=== PATIENT | female | born 1985 | race African-American/Black ===

== ENCOUNTER 2024-02-18 15:43 | Emergency (ER) | payer OTHER, BC, SELFPAY ==
[2024-02-18 16:01] VITALS: BP 123/83; PULSE 88; RESP 16; TEMP 36.7; O2SAT 100
--- NOTE | 2024-02-18 16:35 | ED.URI ---
HPI - URI/Sore Throat General Chief Complaint: Upper Respiratory Infection Stated Complaint: cough,chills,WEBSTER,congestion Time Seen by Provider: 02/18/24 16:35 Source: patient, RN notes reviewed and old records reviewed Mode of arrival: ambulatory Limitations: no limitations History of Present Illness HPI Narrative: 38-year-old female presents to the [facility] with complaints of cough, chills, headache and congestion that started Thursday, a 5 days Patient reports ?I have tried everything. Onset (ago): day(s) (5) Related Data Allergies Allergy/AdvReac Type Severity Reaction Status Date / Time No Known Allergies Allergy Verified 02/18/24 16:09 Review of Systems Review of Systems: All systems reviewed & are unremarkable except as noted in HPI and below Constitutional: Constitutional: Reports as per HPI, Reports chills and Reports headache(s) ENT: Reports system reviewed and no additional complaints, except as documented Cardiovascular: Cardiovascular: Reports no additional cardiovascular complaints, Denies chest pain and Denies dyspnea Respiratory: Respiratory: Reports as per HPI, Denies chest congestion, Reports cough and Denies dyspnea Musculoskeletal: Musculoskeletal: Reports no additional musculoskeletal complaints Integumentary/Breasts: Skin/Breast: Reports system reviewed and no additional complaints, except as docu PMFSH Comments At the time of my signature, I reviewed and agree with the nursing past medical, surgical, social, and family history. There is no relevant family history pertinent to the patient complaint. Exam Const: General: cooperative, healthy appearing, comfortable, no acute distress, well developed, alert and well nourished Nutritional Appearance: well nourished Orientation/consciousness: patient oriented x3 Limitations: no limitations HENMT: Head: normal to inspection Ears: hearing grossly normal bilaterally, external ears normal, TM's normal bilaterally, EAC's normal, mastoids normal and no periauricular adenopathy Face/Nose/Sinus: normal facial exam and face symmetric Face and sinus: normal facial exam and face symmetric Mouth: Yes Normal oral and palatal mucosa present, Yes lip normal and Yes tongue normal Throat: posterior oropharynx normal, uvula midline, postnasal drainage and no uvular edema Eyes: General: appearance normal, both eyes and all related structures Neck: Neck: normal visual inspection, full ROM, no lymphadenopathy and no meningeal signs Chest: Chest palpation & inspection: normal inspection of the chest Resp: Effort & Inspection: normal respiratory effort and able to speak in complete sentences Auscultation: clear to auscultation bilaterally, no crackles, no rales, no rhonchi and no wheezes Cardio: Rate: regular rate Skin: General skin exam: normal color and no rashes or lesions noted Neuro: General: patient oriented x3, gait normal, moves all extremities and no meningeal signs Cognition (Neuro): normal cognition Speech: normal speech Gait exam (Neuro): Normal gait present Extrem: General: normal to inspection, full ROM, capillary refill normal and normal gait Psych: Appearance: grossly normal and well kempt Mental Status: mental status grossly normal Speech and movement: Normal speech and movement present and Clear speech present Affect: normal affect Attitude: cooperative Course Course Level of Care: Express Care Visit Vital Signs Vital signs: Vital Signs Temperature 98.0 F 02/18/24 16:01 Pulse Rate 88 02/18/24 16:01 Respiratory Rate 16 02/18/24 16:01 Blood Pressure 123/83 02/18/24 16:01 Pulse Oximetry 100 02/18/24 16:01 Oxygen Delivery Room Air 02/18/24 16:01 Temperature 98.0 F 02/18/24 16:01 Pulse Rate 88 02/18/24 16:01 Respiratory Rate 16 02/18/24 16:01 Blood Pressure 123/83 02/18/24 16:01 Pulse Oximetry 100 02/18/24 16:01 Oxygen Delivery Room Air 02/18/24 16:01 Reviewed MDM - URI/Sore Throat MDM Narrative Medical decision making narrative: Patient sitting comfortably in exam room. Nontoxic, vitals stable. Patient with URI symptoms for 5 days. No acute findings noted on exam Patient appropriate for outpatient treatment and follow-up Discharge instructions reviewed with patient, as well as provided in writing per nursing staff. The instructions also include specific and strict return/GO TO THE ER as well as f/u information. All questions have been answered, and the patient deny any further questions with discharge and discharge plan. Some parts of this dictation were generated by voice recognition software and may contain typographical and/or grammatical inaccuracies. Differential Diagnosis Differential diagnosis: Likely upper respiratory infection, otitis media, sinusitis, viral infection, bronchitis, influenza and pharyngitis Critical Care Time Critical Care Time Critical Care Time: No Discharge Plan Discharge Clinical Impression: Upper respiratory infection Qualifiers: URI type: unspecified viral URI Qualified Code(s): J06.9 - Acute upper respiratory infection, unspecified Patient Disposition: Home, Self-Care Condition: Stable Instructions: Antibiotic Form, Upper Respiratory Infection (ED) Additional Instructions: Your symptoms are likely due to a viral illness, which is not treated with antibiotics. Typically viral infections last 7-10 days, can linger for couple of weeks. It is very important to treat your symptoms. Drink plenty of water, Gatorade, Pedialyte, ice pops or Jell-O. -Alternate Tylenol and Motrin per package directions for fever or pain. You can alternate every 4 hours -Antihistamine medication such as Benadryl at night and Zyrtec/Claritin/Kimberly during the day can help improve symptoms. -doing daily nasal irrigations can help relieve pressure your sinuses. Things like a Neti pot -Use Flonase twice a day for 5 days then daily to help reduce the inflammation and dry up your sinuses. -You can also use Mucinex. Be sure to drink plenty of water with this medication at least 8 ounces with every dose and it is important to drink 8 to 10 glasses of water per day. Water is a natural decongestant -Eat and drink things that are easy to swallow, like tea or soup, or popsicles. -Oral rinses such as: Salt water gargles and/or may use topical anesthetic (eg. Chloraseptic spray) or lozenges to relieve dryness or throat pain). -Frequent hand washing or hand forklift technician is one of the best ways to prevent spread of infection. -Using a vaporizer or humidifier at night will also help thin secretions and help with coughing up phlegm. -Follow up with primary care provider in 7-10 days if condition is not improving - For new or worsening symptoms go directly to the nearest ER Patient Language: Romansh Prescriptions: New ibuprofen 600 mg tablet 600 mg PO TID PRN (Reason: fever or pain) Qty: 30 0RF benzonatate 100 mg capsule 100 mg PO TID PRN (Reason: cough) Qty: 10 0RF Follow-up/Referrals: PHYSICIAN NOT ON STAFF,NONSTAFF [Primary Care Provider] - Stand Alone Forms: Work/School Release IP Time of Disposition: 16:43
== END 2024-02-18 16:49 | disposition home or self-care (01) ==
PROVIDERS: Emergency Provider Nurse Practitioner
DX: J06.9 Acute upper respiratory infection, unspecified (principal)
CPT/HCPCS: 99213; G0463

== ENCOUNTER 2024-06-29 11:24 | Outpatient (RCR) | payer OTHER, SELFPAY ==
[2024-06-29 11:40] VITALS: BMI 33.2
== END 2024-09-13 07:57 | disposition home or self-care (01) ==
LOC: ANHDMC 11:24
PROVIDERS: PCP Family Medicine; Visit Provider Family Medicine
DX: K59.00 Constipation, unspecified (principal); Z71.3 Dietary counseling and surveillance; F41.1 Generalized anxiety disorder
CPT/HCPCS: 97802

== ENCOUNTER 2024-10-10 01:46 | Day surgery (SDC) | payer OTHER, SELFPAY ==
[2024-09-29 14:24] VITALS: BMI 33.1
--- NOTE | 2024-09-29 14:25 | PC.NURSE ---
Report to the Outpatient Waiting Room, entrance under the green pavilion located off [facility], at time _0900_ on date _[id number]_. Planned Procedure Time: _1100_.? Time changes happen often and if your time is changed the preop area will call you the afternoon before. - You and your visitor will be asked to self-screen and do not enter if you have any COVID symptoms. Please call surgeon if you need to reschedule. - A mask is optional within the hospital at this time. Patients may have clear liquids (water, carbonated beverages, clear teas, apple juice) until 3 hours prior to surgery with a maximum of 20 ounces. - No food from midnight until time of surgery and no smoking, or chewing tobacco (or any form of nicotine). No chewing gum, candy or mints. Take only the following medications with a SIP of water on the morning of surgery: ___None____ DO NOT STOP ANY OF YOUR OTHER PRESCRIPTION MEDICATIONS PRIOR TO SURGERY EXCEPT THE FOLLOWING Hold all vitamins and supplements for 3 days per anesthesiologist. Medications to discontinue per physician Date to take last dose Please no make-up, nail citizen of [place], hairspray, perfume, deodorant, or body powder the day of surgery.? No jewelry (including any body piercings) or valuables the day of surgery, leave them at home.? Please take a shower or bath the night before, or the morning of, surgery with an antibacterial soap.? Wear comfortable, loose fitting clothing.? - Jewelry must be removed prior to entering the operating room.? Rings and piercings that are not removed may be cut off. - The hospital will not accept responsibility for valuables.? - Please leave all valuables, including medications, at home the day of surgery. If you are going home after surgery, a licensed water taxi driver must drive you home.? - NO public transportation without another adult if you receive anesthesia. - We recommend that an adult stay with you for 24 hours following discharge. - We also recommend that you do not drive, make important decision, drink alcoholic beverages, or take any drugs that were not prescribed by your health care provider for at least 24 hours after your discharge time. Follow any additional instructions given to you from your surgeon. Telephone instructions given to __Bertha___and asked if any additional questions and then verbalized understanding. Patient advised to call surgeon office or pre surgery nurse liaison [phone] if any additional questions.
--- NOTE | 2024-10-07 10:32 | P.HP_ITS ---
H&P: HPI History of Present Illness Date/Time: 10/07/24 10:32 Chief Complaint: skenes gland cysto Narrative: ?She was referred here by her primary care provider for a lump on the vagina. ?She denies any bleeding or pain. ?She reports has been here for approximately 3 weeks. ?She denies any difficulty with urination. ?She has not had intercourse since noticing a lump. [facility] Past Medical History Medical History BMI 31.0-31.9,adult BMI 33.0-33.9,adult Insomnia Generalized anxiety disorder Surgical History Surgical History H/O tubal ligation Family History Family History Father No problems noted. Mother Covid-19 Sibling No problems noted. Social History Social History Smoking status: Never smoker Second hand tobacco smoke exposure: Yes Alcohol intake: current Alcohol use details: 1-4 drinks per week Substance use: never Substance use type: does not use Do You Feel Safe in your Home?: Yes Lack of Transportation: No Lack of Food: Never True Current Housing: I Have Housing Concerned About Future Housing: No Difficulty Paying Gas/Electric Bills: No Difficulty Paying for Meds: No Currently Unemployed: No Education: Trade/Vocational Certificate Difficulty w/ Childcare or Family Care: No Living arrangements: with family Occupation/Education: occupation Additional occupation/education comments: [employer] Gender identity (if verbalized by the patient): Female Spiritual care concerns: No Meds Home Medications and Allergies Home Medications ?Medication ?Instructions ?Recorded ?Confirmed ?Type trazodone 100 mg tablet 100 mg PO QHS PRN insomnia #90 tabs 06/20/24 09/29/24 Rx Allergies Allergy/AdvReac Type Severity Reaction Status Date / Time No Known Allergies Allergy Verified 09/29/24 14:18 Exam Narrative: Physical Exam (Dee Oreilly; 09/01/2024 12:23 PM) General Mental Status?-?Alert. General Appearance?-?Not in acute distress. Orientation?-?Oriented to person, place and time. Build & Nutrition?-?Well nourished and Well developed. Integumentary General Characteristics Color - normal coloration of skin. Head and Neck Head Head Shape - normocephalic, atraumatic. Neck Global Assessment - full range of motion, no abnormal movements. Trachea?-?midline. Thyroid Gland Characteristics - not enlarged. Eye Eyeball - Bilateral?-?Normal. Eyes?-?EOM Intact. Sclera/Conjunctiva - Bilateral?-?Normal. ENMT Nose and Sinuses Inspection of the nares - Bilateral - nares are symmetric, normal respiration. Mouth and Throat Lips - Upper Lip - no cyanosis noted. Chest and Lung Exam Chest and lung exam reveals ?-?normal respiratory rate. Inspection Movements - Symmetrical and no labored breathing. Accessory muscles - No use of accessory muscles in breathing. Breast Breast Exam?-?Not Indicated. Cardiovascular Inspection Edema_ - no edema. Varicosities_ - no varicosities. Abdomen Palpation/Percussion Palpation and Percussion of the abdomen reveal - Non Tender and No Rigidity (guarding). Stool specimen?-?Stool specimen not indicated. Female Genitourinary External Genitalia Vulva - Hair Distribution - Normal. Introitus - Discharge - None. Urethra - Characteristics - Inflamed [place] Gland ?(Cyst noted At 6:00) , Stress Incontinence Absent, No Diverticulum, Non Tender. Speculum & Bimanual Vagina: Vaginal Wall - Cystocele_ - None. Apex_ - Supported. Rectocele - None. Vagina - Vaginal Mucosa - Healthy. Cervix - Characteristics - Normal. Uterus - Characteristics - Normal. Adnexa - Characteristics - Bilateral - Normal - Bilateral. Rectal Rectal Exam - Female?-?Normal anus and perineum and LESLEY not indicated. Neurologic Neurologic evaluation reveals ?-?A+O x3 and Active movement of all four extremities. Mental Status Affect - appropriate. Perineal Sensation?-?Normal. Musculoskeletal Spine/Ribs/Pelvis Pelvic Region: Strength and Tone: Pelvic Floor Muscles_ - Tone_ - Bilateral - Normal. Tenderness_ - Bilateral - None. General Extremities?-?Moves all extremities well. Lymphatic Femoral & Inguinal?-?No palpable inguinal lymph nodes. Assessment and Plan Assessment and plan (1) [place]'s duct cyst: Code(s): N36.8 - Other specified disorders of urethra Status: Acute Assessment and Plan: Removal of [place]'s gland cyst
[2024-10-10] VITALS (11 sets, daily range): BP systolic 97–169; BP diastolic 66–98; PULSE 50–60; RESP 12–16; TEMP 36.4–36.6; O2SAT 97–100; BMI 31.3
--- OUTSIDE RECORDS SUMMARY | 2024-10-10 01:51 | XMS_ITS | Clinical Summary ---
Author Organization [facility] Address [address] [place] [address] Care Team Providers Care Ground Nuclear Weapons Assembly Officer Name Role Phone Unavailable Primary Care Provider Unavailabl e Source Comments [facility],non-owned Affiliates and Associated Physician Practices is amultiple site organization consisting of ambulatory clinics and hospital sitesin [place], [place], [place] and [place]. This disclosure is being madepursuant to the Care Everywhere program and may not contain all information available regarding this patient. Last updated 17.[facility] Social History Tobacco Use Types Packs/Day Years Used Date Smoking Tobacco: Never Assessed Comments Unknown Sex and Gender Information Value Date Recorded Sex Assigned at Not on file Legal Sex Female 3:03 PM CDT Gender Identity Not on file Sexual Orientation Not on file Plan of Treatment Health Maintenance Due Date Last Done Comments LIPID TESTING 1983 MAMMOGRAM 1983 HIV SCREENING 11/18/1998 HEPATITIS C SCREENING 11/14/2001 DTAP/TDAP/TD VACCINES (1 - Tdap) 11/18/2002 HEPATITIS B VACCINE (1 of 3 - 19+ 3-dose series) 11/18/2002 PAP SMEAR 11/18/2004 HPV VACCINE (1 - 3-dose SCDM series) 11/18/2010 COVID-19 VACCINE (1 - 2023-2 5 season) 2023 DEPRESSION SCREENING 03/02/2024 INFLUENZA VACCINE (#1) 2024 ZOSTER VACCINE (1 of 2) 11/18/2033 HIB VACCINE Aged Out No longer eligi ble based on patient's age to complete this topic MENINGOCOCCAL (Group B) VACC INE SHARED DECISION-MAKING Aged Out No longer eligibl e based on patient's age to complete this topic MENINGOCOCCAL GROUPS A/C/Y/W VACCINE Aged Out No longer eligible b ased on patient's age to complete this topic PNEUMOCOCCAL VACCINE Aged Out No long er eligible based on patient's age to complete this topic
--- OUTSIDE RECORDS SUMMARY | 2024-10-10 01:51 | XMS_ITS | Clinical Summary ---
Author Organization [facility] Address [address] [place] [address] Phone Care Team Providers Care Education Counselor Name Role Phone Maki Tavarez MD Primary Care Provi alisson Allergies No known active allergies Medications lidocaine (LIDODERM) 5 % Place 1 patch on the skin daily Remove & discard patch within 12 hours or as directed by . 30 patch 09/01/2022 Active ibuprofen (ADVIL,MOTRIN) 600 mg tabletIndicatio ns:Sciatica, right side Take 1 tablet (600 mg total) by mouth every 6 (six) hours as needed for pain 30 tablet 1 09/09/2022 Active Active Problems Problem Noted Date Diagnosed Date Class 1 obesity due to exces s calories without serious comorbidity with body mass index (BMI) of 34.0 to 34.9 in adult 09/09/2022 Assessment & Plan (04/28/2023 10:44 AM RULING MACHINE OPERATOR): Exercise 5 days a week, 30 mins per day recommended. Eat a heart healthy diet consisting of good, healthy protein (eggs, nuts, peanut butter, chicken, fish, turkey, less pork/beef), lots of vegetables, less carbohydrates and less sugar. Assessment & Plan (09/09/2022 1:38 PM CDT): BMI Follow-up includes: nutrition counseling. Encouraged low carb Well adult exam 03/06/2022 Overview (04/28/2023): PMH: 04/28/23 Last pap: 03/2022, repeat 3-5 years Last mammogram: age 38 Last dexa: Last colonoscopy/cologuard: Last Hep C: Last tdap: 08/2022 Last Prevnar/pneumovax: Last Shingrix: Last eye exam: Assessment & Plan (04/28/2023 10:45 AM RULING MACHINE OPERATOR): PMH: 04/28/23 Last pap: 03/2022, repeat 3-5 years Last mammogram: age 38 Last dexa: Last colonoscopy/cologuard: Last Hep C: Last tdap: 08/2022 Last Prevnar/pneumovax: Last Shingrix: Last eye exam: Assessment & Plan (03/06/2022 3:33 PM RULING MACHINE OPERATOR): Encouraged a healthy diet would and activity Always wear her seatbelt, no texting her driving Preventive healthcare: Last Pap: Today Encouraged updating her vaccines History of abnormal cervical Pap smear Assessment & Plan (03/06/2022 3:34 PM RULING MACHINE OPERATOR): Pap completed, though starting her. Will refer to fourdrinier tender If PAP inconclusive will repeat Dysmenorrhea 03/06/2022 Assessment & Plan (04/28/2023 10:44 AM RULING MACHINE OPERATOR): Chronic. Stable. Use ibuprofen 600 mg as needed. Assessment & Plan (03/06/2022 3:33 PM RULING MACHINE OPERATOR): She can continue to use might all We discussed OCP, declined due to VTE risk Will refer to fourdrinier tender for possible other treatment options Iron deficiency anemia due to chronic blood loss 03/06/2022 Assessment & Plan (04/28/2023 10:44 AM RULING MACHINE OPERATOR): Chronic. Stable. Last CBC 04/20/23 normal. No longer taking iron supplement. Monitor Assessment & Plan (03/06/2022 3:34 PM RULING MACHINE OPERATOR): Will recheck her labs Continue ferrous sulfate Adjustment disorder with mixed anxiety and depre ssed mood 01/15/2022 Assessment & Plan (04/28/2023 10:44 AM RULING MACHINE OPERATOR): Chronic. PHQ-9 and angela 7 elevated. Patient no longer on duloxetine as she felt this did not help. Discussed a higher dose may help. She would like to try counseling and plans to start next week. She is also going through a stressful time (divorce). Monitor. - encouraged healthy habits - work on coping strategies Assessment & Plan (09/09/2022 1:33 PM CDT): Off medication, mood is worse Will do a trial of cymbalta Continue healthy changes to boost mood- exercise, healthy diet, using support structures that are in place, and good sleep habits If mood worsens or changes, please contact the office Update me in 4-6 weeks Anything emergent, to the er Call for questions or concerns Assessment & Plan (03/06/2022 3:33 PM RULING MACHINE OPERATOR): Chronic, off medication Encouraged healthy changes for her mood Encouraged to look into a therapist Update me if her mood worsens or changes Assessment & Plan (01/15/2022 3:05 PM RULING MACHINE OPERATOR): Patient reiterated no suicidal thoughts at this time; contact 911 and go to the ER if becomes suicidal effexor 37.5 mg daily take medication as directed discussed side effects of medication with patient encouraged healthy diet and exercise encouraged patient to see a counselor use support structures you have in place consider meditation-look at Calm duke try to work on healthy sleep habits If mood worsens or changes, please contact the office Anything emergent, to the er National Suicide Prevention Lifeline at 685-705-JMRM (0647) Immunizations Immunization Administration Dates Next Due Influenza, Quadrivalent, Spl it, Preservative Free, Intramuscular 12/27/2022 Influenza, Unspecified 01/15/2022(Deferr ed: Patient Refused),11/30/2021(Deferred: Patient Refused),11/30/2020(Deferred: Patient Refused),11/30/2020(Deferred: Patient Refused),01/02/2016 Pfizer SARS-CoV-2 Monovalent Vaccination (12+ Yrs) PURPLE 04/03/2021,10/05/2020,09/14/2020 Tdap 09/03/2022 Surgical History Surgery Date Site/Laterality Comments SALPINGECTOMY 03/02/2008 - 03/01/2009 Right Medical History Medical History Date Comments Anxiety Hypertension Tubal Menstrual problem Family History Medical History Relation Name Comments Hyperlipidemia Father No Known Problems Maternal Grandfather No Known Problems Maternal Grandmother Heart disease Mother Hyperlipidemia Mother No Known Problems Sister 1 No Known Problems Sister 2 Relation Name Status Comments Father Alive Maternal Grandfather Maternal Grandmother Mother Sister 1 Alive Sister 2 Alive Social History Tobacco Use Types Packs/Day Years Used Date Smoking Tobacco: Never Smokeless Tobacco: Never Tobacco Cessation:Counseling Given: Not Answered AUDIT-C Answer Date Recorded Q1: How often do you have a drink containing alcohol? Never 04/28/2023 Q2: How many drinks containi ng alcohol do you have on a typical day when you are drinking? Patient does not drink Q3: How often do you have si x or more drinks on one occasion? Never 04/28/2023 PHQ-2 Answer Date Recorded PHQ-2 Total Score (If total score is 3 or more points, staff should administer the PHQ-9) 5 04/28/2023 Personal Safety Answer Date Recorded Have you ever been in or are you currently in a harmful physical or emotional relationship or is someone making you feel afraid or unsafe? Denies 09/01/2022 Comments No Sex and Gender Information Value Date Recorded Sex Assigned at Not on file Legal Sex Female 3:13 PM CDT Gender Identity Female 12/25/2022 8:11 AM CDT Sexual Orientation Straight 12/25/2022 8: 11 AM CDT Obstetrics History Para Term AB IAB SAB Ectopic Multiple Livin g Live Births 3 Date Outcome GA Total Labor Labor/2nd/3rd Weight Sex Type Anes PTL Dionne A1 A5 Name Clin Last Filed Vital Signs Vital Sign Reading Time Taken Comments Blood Pressure 110/80 06/16/2023 11:07 AM CDT Pulse 76 06/16/2023 11:07 AM CDT Temperature 36.4 C (97.6 F) 06/16/2023 11:07 AM CDT Respiratory Rate 16 06/16/2023 11:07 AM CDT Oxygen Saturation 96% 04/28/2023 10:17 AM RULING MACHINE OPERATOR Inhaled Oxygen Concentration - - Weight 76.3 kg (168 lb 3.2 oz) 06/16/2023 11:07 AM CDT Height 154.9 cm (5' 1) 06/16/2023 11:07 AM CDT Body Mass Index 31.78 06/16/2023 11:07 AM CDT Plan of Treatment Health Maintenance Due Date Last Done Comments Hepatitis C Screening 1985 Hepatitis B Screening 11/18/2001 HPV Vaccines (1 - 3-dose SCDM series) 11/18/2010 Covid-19 Vaccine ( season) 2023 04/03/2021, 10/05/2020, 09/14/2020 Depression Screening 04/28/2024 04/28/2023, 04/28/2023, 09/09/2022, Additional history exists Regular Well Visit/Exam 18-64 04/28/2024 04/28/2023, 03/06/2022, 03/06/2022 Influenza Vaccine (#1) 2024 , 12/27/2022, 01/02/2016 Breast Cancer Screening-Mammogram 06/30/2025 06/30/2024 Cervical Cancer Screening 03/06/2027 03/06/2022, 10/2020 DTaP/Tdap/Td Vaccine (2 - Td or Tdap) 09/03/2032 09/03/2022 Pneumococcal vaccine <65 Aged Out No longer eligible based on patient's age to complete this topic Varicella Vaccines Discontinued Procedures Procedure Name Priority Date/Time Associated Diagnosis Comments SCREENING MAMMOGRAM BILATERAL W PAULO Schedule Routine, Read Routine (OP Routine) 06/30/2024 2:40 PM CDT Encounter for other screening for malignant neoplasm of breast PAP AND HIGH RISK HPV, REFLEX TO GENOTYPING Routine 03/06/2022 3:26 PM RULING MACHINE OPERATOR Cervical cancer screening Screening for HPV (human papillomavirus) from Last 3 Months or Most Recently Relevant to Health Maintenance Results * Screening Mammogram Bilateral W Paulo (06/30/2024 2:40 PM CDT) Anatomical Region Laterality Modality Breast Bilateral Mammography Impressions 06/30/2024 4:31 PM CDT Bilateral No evidence of malignancy in either breast. OVERALL BI-RADS FINAL ASSESSMENT: 1 - Negative RECOMMENDATION: Recommend bilateral annual screening mammography. Narrative 06/30/2024 4:31 PM CDT EXAMINATION: Screening Mammogram Bilateral W Paulo: 06/30/2024 COMPARISON: This is the patient's baseline mammogram. TECHNIQUE: Mammography was performed with 2D and digital breast tomosynthesis (DBT) images. CAD was utilized. BREAST PARENCHYMAL COMPOSITION: The breasts are heterogeneously dense, which may obscure small masses. FINDINGS: Bilateral There is no suspicious mass, calcification, or architectural distortion in either breast. us Unknown Referring MD IMG MAMMO PROCEDURES Final Result * Pap and High Risk HPV, reflex to Genotyping (03/06/2022 3:26 PM RULING MACHINE OPERATOR) CLINICAL INFORMATION: [facility] Comment:SCREENING LMP [facility] Comment:03/06/21 Previous Pap [facility] Comment:NONE GIVEN Prev. Bx [facility] Comment:NONE GIVEN SOURCE: [facility] Comment:Cervix, Endocervix Pap, specimen adequacy [facility] Comment: Satisfactory for evaluation. Endocervical/transformation zone component absent. HPV interp [facility] Comment:Negative for intraep ithelial lesion or malignancy. Skin Peeling Machine Operator [facility] Comment: LM, CT(ASCP) CT screening location: [place] [address] [place] [address] Comment [facility] Comment: EXPLANATORY NOTE: The Pap is a screening test for cervical cancer. It is not a diagnostic test and is subject to false negative and false positive results. It is most reliable when a satisfactory sample, regularly obtained, is submitted with relevant clinical findings and history, and when the Pap result is evaluated along with historic and current clinical information. Human papillomavirus DNA, High Risk E6/E7 Not Detected NOT DETECTED [facility] Comment: Not Detected High Risk HPV types (16,18,31,33,35,39,45,51,52, 56,58,59,66,68) were not detected. Other HPV types which cause anogenital lesions may be present. The significance of the other types of HPV in malignant processes has not been established. Methodology: Real Time PCR Thin prep 03/06/2022 3:26 PM RULING MACHINE OPERATOR 03/07/2022 12:39 AM RULING MACHINE OPERATOR us Maki Tavarez MD LAB CYTOLOGY ORDERA BLES Final Result [facility] [address] [place] [address] [facility] [address] [address] from Last 3 Months or Most Recently Relevant to Health Maintenance Insurance [facility] [id number] [place] Care Teams Education Counselor Relationship Specialty Start Date End Date Maki Tavarez MD [address] [place] [address] PCP - General Family Medicine 01/15/22
--- OUTSIDE RECORDS SUMMARY | 2024-10-10 01:51 | XMS_ITS | Patient Health Record ---
Author Organization [facility] Mario donovan Billing Info Address [address] [place] [id number] Care Team Providers Care Carton Forming Machine Operator Name Role Phone Ricci LAMKim Primary Care Provider Unavaila ble Allergies No Known Allergies Reason For Referral No Information Medications Medication SIG (Take, Route, Fr equency, Duration) Notes Start Date End Date Status Ibuprofen 800 MG 1 tablet with food o r milk as needed Orally Three times a day for 30 day(s) 11/09/2020 Active Lorazepam 0.5 MG (Schedule IV Drug) T JANIE 1 TABLET BY MOUTH EVERY 8 HOURS NEEDED FOR ANXIETY Oral for 10 Not-Taking Lysteda 650 MG 2 tabs Orally q 8 ho urs for 5 day(s) 11/09/2020 Active Diflucan 150 MG 1 tablet Orally ONE PILL DAY ONE, ONE PILL DAY THREE, ONE PILL DAY SEVEN for 7 day(s) 07/17/2020 Not- Taking Plan Of Treatment Pending Test Test Name Order Date PELVIC TRANSABDOMINAL AND TRANSVAGINAL U LTRASOUND (MARCUS-USPETV) 10/15/2020 Insurance Providers Payer Name Payer Address Payer Phone Subscriber Number Group Number Insured Name Patient Relationship to Insured Coverage Start Date Coverage End Date [employer] PPO POS BLUE CHOICE [address] [place], [place] [phone] [id number] Cristy Aguero Self - patient is the insured 1 01/01/203 1 Medical (General) History Medical History History ICD Code HSV II HX OF ABN PAP ANXIETY Surgical History Surgery Date(Month/Year) ECTOPIC IN [place]. NOT SURE WHICH FAL LOPIAN TUBE WAS REMOVED COLPO 03/2020 Hospitalization History Reason Date(Month/Year) CHILD
--- OUTSIDE RECORDS SUMMARY | 2024-10-10 01:51 | XMS_ITS | Clinical Summary ---
Author Organization [facility] Address [address] [place] [address] Care Team Providers Care Dog Obedience Instructor Name Role Phone Unavailable Primary Care Provider Unavailabl e Immunizations Immunization Administration Dates Next Due Influenza Seasonal Unspecified Formulation IM Social History Tobacco Use Types Packs/Day Years Used Date Smoking Tobacco: Never Assessed Comments Unknown Sex and Gender Information Value Date Recorded Sex Assigned at Not on file Legal Sex Female 7:53 PM CDT Gender Identity Not on file Sexual Orientation Not on file Plan of Treatment Health Maintenance Due Date Last Done Comments HPV VACCINES (1 - 3-dose series) 11/18/1998 DTAP/TDAP/TD VACCINES (1 - Tdap) 11/18/2002 HEPATITIS B VACCINES (1 of 3 - 19+ 3-dose series) 10/31 HPV/Cotest (21-29) 11/18/2004 CERVICAL CANCER SCREENING 11/18/2013 HPV/Cotest (30-65) 11/18/2013 PAP SMEAR 11/18/2013 BREAST CANCER SCREENING 2023 INFLUENZA VACCINE (#1) 2024 12/04/2023 Insurance RX [facility] [employer]
--- NOTE | 2024-10-10 07:16 | WPDHPUPDATE1 ---
History and Physical Update Update Date/Time: 10/10/24 07:16 History and Physical has been reviewed, including an updated exam of the patient. There are NO changes in the patient's condition. Risks, benefits, and alternatives have been discussed and questions answered. Patient agrees to proceed with procedure.
--- NOTE | 2024-10-10 13:42 | P.PNAN_ITS ---
Anes - Initial Pre Proc Eval Procedure: Operation Date: 10/10/24 14:30 Proposed Procedures p Excision [place]'s Gland Cyst - Bruno Sorto MD s Flexible Cystoscopy - Bruno Sorto MD Date/Time: 10/10/24 13:42 Surgeon: Bruno Sorto MD Pre Op Diagnosis: skenes gland cyst Patient Data Age: 38 Gender: F Height: 1.55 m Weight: 79.5 kg Allergies Allergy/AdvReac Type Severity Reaction Status Date / Time No Known Allergies Allergy Verified 09/29/24 14:18 Home Medications ?Medication ?Instructions ?Recorded ?Confirmed ?Type trazodone 100 mg tablet 100 mg PO QHS PRN insomnia #90 tabs 06/20/24 09/29/24 Rx Patient hx anesthesia problems: none Family hx anesthesia problems: none Results Review: All pre-operative results and documents have been reviewed as part of the pre- operative evaluation. [facility] Past Medical History Medical History BMI 31.0-31.9,adult BMI 33.0-33.9,adult Insomnia Generalized anxiety disorder Surgical History Surgical History H/O tubal ligation Family History Family History Father No problems noted. Mother Covid-19 Sibling No problems noted. Social History Social History Smoking status: Never smoker Second hand tobacco smoke exposure: Yes Alcohol intake: current Alcohol use details: 1-4 drinks per week Substance use: never Substance use type: does not use Do You Feel Safe in your Home?: Yes Lack of Transportation: No Lack of Food: Never True Current Housing: I Have Housing Concerned About Future Housing: No Difficulty Paying Gas/Electric Bills: No Difficulty Paying for Meds: No Currently Unemployed: No Education: Trade/Vocational Certificate Difficulty w/ Childcare or Family Care: No Living arrangements: with family Occupation/Education: occupation 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 Informed Consent: The patient's anesthetic plan and its attendant risks and benefits were discussed with the patient/family/POA. Questions were solicited and answers provided to the satisfaction of the patient/family/POA.
[2024-10-10] MEDS: LACTATED RINGERS 1,000 ML 30 ML IV CONT ×2 (13:45→16:01)
[2024-10-10] MEDS: ceFAZolin 2 GM in SODIUM CHLORIDE 0.9% IV 50 ML 100 ML IVPB (14:45)
--- NOTE | 2024-10-10 15:13 | S_PTH ---
PATIENT: Misael Aguero LOC: [facility] U#:[id number] AGE/SX: 38/F ROOM: RE10/10/[address]: Bruno Sorto MD : 1985 BED: DIS: 10/10/2024 SPEC #: [id number] RECD: 10/11/24 07:32 STATUS: ISABELL REQ #: [id number] ALANIS: 10/10/24 15:[address]: Bruno Sorto DEPT: [facility] Surgical RECD BY: Roxana Chatman ENTERED: 10/11/24 07:33 SP TYPE: Surgical OTHR DR: Marian Gomez, DO Tissues: A - Cyst Procedures: Hematoxylin and Eosin Stain Gross and Microscopic Level 4
[2024-10-10 15:25] LABS: BEDSIDEPREGUCG Negative (Negative)
[2024-10-10] MEDS: fentaNYL CITRATE INJ (*CRX) 100 MCG/2 ML VIAL 25 MCG IV PUSH ×8 (15:30→16:25)
--- NOTE | 2024-10-10 15:34 | P.OP_ITS ---
Procedure Note - Detailed Date of Procedure 10/10/24 Pre-op Diagnosis skenes gland cyst Post-op Diagnosis Same Procedure Performed Excision of [place] gland cyst Surgeon Bruno Sorto MD Anesthesia General Indications This is a woman with a symptomatic [place] gland cyst. She presents for excision. Understands risks of bleeding, infection, damage to the urethra, fistula formation, incontinence, recurrence, inability to remove the cyst. She agrees to proceed Findings Uncomplicated removal of a right [place] gland cyst Description of Procedure She was correctly identified. Informed consent was obtained. She was from the operating room. She was given general anesthesia. She was placed in dorsal thigh position. She was prepped and draped sterile fashion. Time-out performed. I placed a [place] retractor. I placed a العلي catheter. She had a 1/2 cm [place]'s gland cyst at the 7 o'clock position on the urethra. I incised the mucosa over the top of the [place] gland cyst. I then used tenotomy scissors to dissect around the [place] gland cyst. At 1 point I did enter the cyst and there was expression of clear fluid. This was not a urethral diverticulum. There was no entry into the urethra. I examined the urethra and ensured no urethral injury or damage. I then closed the deep tissues in a single layer of interrupted 4-0 Vicryl to control bleeding. I then closed a 2nd layer with interrupted 4-0 Vicryl. I then closed the skin with a running 4-0 Vicryl. There was excellent hemostasis. العلي catheter is removed. Again no sign of urethral disruption or injury. She was awakened transferred to PACU in stable condition Estimated Blood Loss 20 Drains No Packing No Pathology None sent Complications No immediate complications Condition Stable Disposition PACU
[2024-10-10] MEDS: oxyCODONE HCL (*CRX) 5 MG TAB IR PO (17:07)
== END 2024-10-10 17:45 | disposition home or self-care (01) ==
PROVIDERS: PCP Family Medicine; Visit Provider Urology
PROC: (CPT 53270; principal; 2024-10-10 14:30)
DX: Q52.4 Other congenital malformations of vagina (principal); G47.00 Insomnia, unspecified; F41.9 Anxiety disorder, unspecified; E66.9 Obesity, unspecified; Z68.31 Body mass index [BMI] 31.0-31.9, adult; Z98.51 Tubal ligation status
CPT/HCPCS: 53270; 88305; J0690; A9270; J1100; J2003; J2250; J2405; J2704; J3010; J7120